=== PATIENT | female | born 1975 | race Caucasian/White ===

== ENCOUNTER 2018-03-19 19:23 | Emergency (ER) | payer MEDICAID ==
[2018-03-19 19:28] VITALS: Ht 157.5 cm
[2018-03-19 20:27] VITALS: BP 124/77
== END 2018-03-19 20:27 | disposition home or self-care (01) ==
LOC: ED 19:23
DX: N64.4 Mastodynia (principal); I10 Essential (primary) hypertension; E78.00 Pure hypercholesterolemia, unspecified; E66.9 Obesity, unspecified; Z68.32 Body mass index [BMI] 32.0-32.9, adult; Z90.89 Acquired absence of other organs

== ENCOUNTER 2018-10-23 14:43 | Emergency (ER) | payer SELFPAY ==
[~2018-10-23] VITALS: Ht 157.5 cm; Wt 76.2 kg
[2018-10-23 15:03] VITALS: Ht 157.5 cm; Wt 76.2 kg
[2018-10-23 16:16] LABS: BASOPHIL % 0.6 % (0-2)
[2018-10-23 16:18] LABS: UA SPECIFIC GRAVITY >=1.030 (1.005-1.035); microscopic required? YES; urine erythrocyte 1+ (NEGATIVE)
[2018-10-23 16:19] LABS: PLATELET COUNT 403 x10^3mcL (130-400)
[2018-10-23 16:21] LABS: CALCIUM 8.4 mg/dL (8.5-10.1); CARBON DIOXIDE 28.4 mmol/L (21-32); CHLORIDE SERUM 104 mmol/L (98-107); CREATININE SERUM 0.8 mg/dL (0.6-1.0); GFR1 > 60 mL/min; GLUCOSE SERUM 116 mg/dL (74-106); POTASSIUM SERUM 3.4 mmol/L (3.5-5.1); SODIUM SERUM 139 mmol/L (136-145)
[2018-10-23 16:25] LABS: ALBUMIN 3.8 g/dL (3.4-5.0); ALKALINE PHOSPHATASE 85 U/L (46-116); ALT/SGPT 17 U/L (14-59); AST/SGOT 10 U/L (15-37); BILIRUBIN TOTAL 0.2 mg/dL (0.20-1.00); LIPASE 179 IU/L (73-393); TOTAL PROTEIN, SERUM 8.1 g/dL (6.4-8.2)
[2018-10-23 17:43] VITALS: BP 118/81
== END 2018-10-23 17:43 | disposition home or self-care (01) ==
LOC: ED 14:43
PROVIDERS: Emergency Medicine
DX: K57.32 Diverticulitis of large intestine without perforation or abscess without bleeding (principal); N39.0 Urinary tract infection, site not specified; E78.5 Hyperlipidemia, unspecified; I10 Essential (primary) hypertension; Z90.89 Acquired absence of other organs
CPT/HCPCS: 36415

== ENCOUNTER 2019-05-31 12:15 | Emergency (ER) | payer BC ==
[~2019-05-31] VITALS: Ht 157.5 cm; Wt 78.5 kg
[2019-05-31 12:36] VITALS: Ht 157.5 cm; Wt 78.5 kg
[2019-05-31 14:41] VITALS: BP 147/49
== END 2019-05-31 14:15 | disposition home or self-care (01) ==
LOC: ED 12:15
DX: T22.012A Burn of unspecified degree of left forearm, initial encounter (principal); I10 Essential (primary) hypertension; E78.5 Hyperlipidemia, unspecified; Z90.89 Acquired absence of other organs; X10.1XXA Contact with hot food, initial encounter; Y93.89 Activity, other specified; Y92.89 Other specified places as the place of occurrence of the external cause; Y99.8 Other external cause status